=== PATIENT | female | born 1980 | race Caucasian/White ===

== ENCOUNTER → 2019-05-15 | Outpatient (CLI) | payer BC ==
[2019-05-15 16:20] LABS: HCT 38.6 % (34.0-46.0); HGB 12.7 gm/dL (11.4-16.0); MCH 30.5 pg (25.0-35.0); MCHC 32.9 g/dL (31.0-37.0); MCV 92.6 fL (80.0-100.0); Mean Platelet Volume 7.3; Platelet Count 294 k/uL (150-450); RBC 4.17 m/uL (3.80-5.40); RDW 12.7 % (11.5-15.5)
[2019-05-16 00:39] LABS: Follicle Stimulating Hormone 7.4 mIU/mL; T4, Free (Free Thyroxine) 1.2 ng/dL (0.80-1.80)
== END | disposition home or self-care (01) ==
LOC: LABWHC1 15:38
PROVIDERS: ATTEND Obstetrics & Gynecology
DX: N92.0 Excessive and frequent menstruation with regular cycle (principal)
CPT/HCPCS: 36415; 83001; 84439; 84443; 84481; 85027; 86376

== ENCOUNTER → 2019-06-05 | Outpatient (CLI) | payer BC ==
[2019-06-05 17:22] LABS: Basophils % (A) 1 %; Eosinophils # (A) 0.2 k/uL (0-0.7); Eosinophils % (A) 3 %; HCT 38.5 % (34.0-46.0); HGB 12.7 gm/dL (11.4-16.0); Lymphocytes % (A) 28 %; MCH 30.4 pg (25.0-35.0); Mean Platelet Volume 7.3; Monocytes # (A) 0.3 k/uL (0-1.0); Monocytes % (A) 4 %; Neutrophils # (A) 4.4 k/uL (1.3-7.7); Neutrophils % (A) 63 %; Platelet Count 313 k/uL (150-450); RBC 4.18 m/uL (3.80-5.40); RDW 12.9 % (11.5-15.5); WBC 7.1 k/uL (3.8-10.6)
== END | disposition home or self-care (01) ==
LOC: LABPAT 16:10
PROVIDERS: ATTEND Obstetrics & Gynecology
DX: Z01.812 Encounter for preprocedural laboratory examination (principal); N93.8 Other specified abnormal uterine and vaginal bleeding; N84.0 Polyp of corpus uteri
CPT/HCPCS: 36415; 85025

== ENCOUNTER 2019-06-12 06:28 | Day surgery (SDC) | payer BC ==
[2019-06-11 09:16] VITALS: BMI 33.6
[~2019-06-12 06:28] MED LIST: DEXAMETHASONE SOD PHOSPHATE 10 MG/ML 1 ML VIAL IV ONE; HYDROmorphone 0.5 MG/0.5 ML SYRINGE IVP PRN; LACTATED RINGERS 1,000 ML IV SCH; LIDOCAINE 1% (10MG/ML) FOR IV START INTRADERMA PRN; MIDAZOLAM 2 MG/2 ML VIAL IV PRN; ONDANSETRON 4 MG/2 ML VIAL IVP ONE; Pre Op ABX Message 1 EACH MISC MISCELLANE ONE; SCOPOLAMINE 1.5MG/72HR PATCH TRANSDERM ONE
[2019-06-12] MEDS ORDERED: LACTATED RINGERS 1,000 ML IV ONE (06:51)
[2019-06-12] MEDS ORDERED: PROPOFOL 10 MG/ML 20 ML VIAL IV ONE (07:25)
[2019-06-12] MEDS ORDERED: MIDAZOLAM 2 MG/2 ML VIAL ONE (07:25)
[2019-06-12] MEDS ORDERED: GLYCOPYRROLATE 0.2 MG/ML 2 ML VIAL ONE (07:25)
[2019-06-12] MEDS ORDERED: fentaNYL (PF) 50 MCG/ML 2 ML AMP ONE (07:25)
[2019-06-12] MEDS ORDERED: LIDOCAINE 1% INJ 10MG/ML (20 ML MDV) ONE (07:25)
[2019-06-12] MEDS ORDERED: LIDOCAINE 1%-EPI 1:100,000 20 ML VIAL SUBMUCOSAL ONE (07:49)
--- NOTE | 2019-06-12 08:14 | P.OP ---
Date of Procedure: 06/12/19 Preoperative Diagnosis: Menorrhagia Endometrial polyp on pelvic ultrasound Postoperative Diagnosis: Menorrhagia Procedure(s) Performed: Diagnostic hysteroscopy, D&C, NovaSure endometrial ablation Anesthesia: MAC Surgeon: Divya Sevilla Estimated Blood Loss (ml): 5 IV fluids (ml): 400 Urine output (ml): 50 Pathology: other (Endometrial curettings) Condition: stable Disposition: PACU Operative Findings: Fluffy endometrium with no obvious endometrial polyp on hysteroscopy Description of Procedure: After the patient and her family was met in the preoperative holding area and all questions were answered, she was taken to the operating room where anesthetic was administered without incident. She was in positioned, prepped and draped in the dorsal lithotomy position. Appropriate timeout procedure was undertaken. The bladder was drained for approximately 50 mL of clear urine. Exam under anesthetic was undertaken. Speculum was placed in the vagina and the cervix was grasped anteriorly with a single-tooth tenaculum. Paracervical block with lidocaine plus epinephrine was placed. The uterus was sounded to 9-1/2 cm. The cervix was then sequentially dilated to allow for passage of the diagnostic hysteroscope. Hysteroscope was introduced very fluffy endometrium with debris was noted. No obvious polyp was appreciated. The hysteroscope was removed and the cervix was then further dilated to allow for passage of a small sharp banjo curet. The curet was introduced and the uterine cavity was circumferentially curettaged with appropriate tissue obtained. Curet was removed and the NovaSure ablation device was introduced. The cavity length was 5.0 cm, width 3.6 cm for a power of 99 W. Cavity assessment was passed and the treatment cycle was initiated. Treatment cycle was 93 seconds. Following cessation of the treatment cycle the device was removed and the hysteroscope was reintroduced. Complete desiccation of the endometrium was appreciated. Hysteroscope was removed as were the tenaculum. Cervix was observed and no active bleeding was noted. Speculum was removed. Patient was awoken from anesthetic without incident and transported to recovery in good condition. All counts reported to me as correct.
[2019-06-12 08:20] VITALS: TEMP 97.4
--- NOTE | 2019-06-12 08:24 | HP ---
HISTORY AND PHYSICAL DATE OF PROCEDURE: 06/12/2019 HISTORY: This is a 39-year-old 2, para 1 woman with a history of heavy periods with clotting. On pelvic ultrasound done for evaluation, she was found to have a small 0.6- cm intrauterine lesion consistent with an endometrial polyp. She is scheduled to undergo diagnostic hysteroscopy, D and C, polypectomy, and NovaSure endometrial ablation for treatment of her menorrhagia. ALLERGIES: VICODIN causes vomiting. MEDICATIONS: 1. Claritin D as needed. 2. Prilosec over the counter as needed. 3. Multivitamin. PAST MEDICAL HISTORY: Menorrhagia, anemia, asthma, heartburn. PAST SURGICAL HISTORY: section 1994, cholecystectomy, tonsillectomy as a child, and wisdom teeth extraction as a teenager. 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 She has regular but heavy menses, as described above. No history of abnormal Pap smears or STDs. SOCIAL HISTORY: Negative for tobacco, alcohol, and drug use. FAMILY HISTORY: Significant for hypertension, diabetes. REVIEW OF SYSTEMS: A 12-point review of systems is negative except for that described above. PHYSICAL EXAM: Blood pressure 150/90, repeat 145/90; heart rate 101; weight 195 pounds; height 5 feet 3 inches. In general, this is a pleasant female in no obvious distress. HEENT exam is unremarkable for palpable lymphadenopathy or thyromegaly. The lungs are clear to auscultation bilaterally. The heart has a regular rate and rhythm. The breasts are symmetric and free of any palpable lumps or visible lesions. The abdomen is soft and nontender with no rebound, no guarding, and no flank pain. On pelvic exam, she has normal female external genitalia, without lesions or irritation. On bimanual examination, the uterus is small, freely mobile, and in the midline with no adnexal abnormalities palpable. Neurologically, she is grossly intact with no obvious focal deficits. ASSESSMENT: A 39-year-old __, para 1 woman with a history of menorrhagia and finding of possible endometrial polyp on pelvic ultrasound. She is scheduled to undergo diagnostic hysteroscopy, D and C with polypectomy and NovaSure endometrial ablation. This procedure has been reviewed with the patient in detail, to include risks and anticipated recovery. Risks include, but are not limited to bleeding, infection, uterine perforation with damage to pelvic or abdominal structures, ongoing bleeding postoperatively. The patient understands these risks and has agreed to proceed. She understands that an ablation procedure is not a contraceptive procedure and is counseled to avoid . MMODL / IJN: [id number] /
[2019-06-12 08:35] VITALS: RESP 16
[2019-06-12 10:15] VITALS: BP 132/84; PULSE 77
== END 2019-06-12 10:37 | disposition home or self-care (01) ==
LOC: OR 06:28
PROVIDERS: ATTEND Obstetrics & Gynecology
DX: N92.0 Excessive and frequent menstruation with regular cycle (principal); N84.0 Polyp of corpus uteri; J45.909 Unspecified asthma, uncomplicated; K21.9 Gastro-esophageal reflux disease without esophagitis; D64.9 Anemia, unspecified; Z82.49 Family history of ischemic heart disease and other diseases of the circulatory system; Z83.3 Family history of diabetes mellitus; Z88.6 Allergy status to analgesic agent; Z88.5 Allergy status to narcotic agent; Z79.899 Other long term (current) drug therapy; Z98.890 Other specified postprocedural states; Z90.49 Acquired absence of other specified parts of digestive tract; Z90.89 Acquired absence of other organs
CPT/HCPCS: 81025; 88305; 58563; J2250; J1100; J2405; J2001; J3010; J2704; J1170

== ENCOUNTER → 2021-07-30 | Outpatient (CLI) | payer OTHER ==
--- NOTE | 2021-07-30 17:26 | XR ---
PROCEDURE: XR ankle complete RT - 3V DATE AND TIME: 07/30/2021 4:56 PM CLINICAL INDICATION: Pain after injury; S90.01XD TECHNIQUE: Department protocol COMPARISON: 07/17/2021 FINDINGS: There is no fracture or malalignment. The soft tissues are unremarkable. IMPRESSION: NO ACUTE PROCESS.
== END | disposition home or self-care (01) ==
LOC: RADXRMAIN 16:39
PROVIDERS: ATTEND Emergency Medicine
DX: S90.01XD Contusion of right ankle, subsequent encounter (principal); X58.XXXD Exposure to other specified factors, subsequent encounter